=== PATIENT | female | born 1965 | race Caucasian/White ===

== ENCOUNTER 2017-02-03 14:43 | Emergency (ER) | payer OTHER ==
--- NOTE | 2017-02-03 14:48 | UC ---
Syncope/New Syncope HPI - HPI Summary HPI Summary: 51 YEAR OLD FEMALE HAS A SYNCOPAL EPISODE YESTERDAY SO I WILL SEND HER TO THE ER. - History Of Current Complaint Stated Complaint: PASSED OUT Time Seen by Provider: 02/03/17 14:48 Hx Obtained From: Patient Onset/Duration: Sudden Onset Activity At Onset: At Rest Timing: Seconds Context: Witnessed Associated Head Trauma: No - Allergies/Home Medications Allergies/Adverse Reactions: Allergies Allergy/AdvReac Type Severity Reaction Status Date / Time No Known Allergies Allergy Verified 01/17/15 11:17 Home Medications: Home Medications Aripiprazole 1 tab PO DAILY 02/03/17 [History Confirmed 02/03/17] Gabapentin CAP(*) [Neurontin 300 CAP(*)] 1 cap PO TID 02/03/17 [History Confirmed 02/03/17] Losartan Potassium 1 tab PO DAILY 02/03/17 [History Confirmed 02/03/17] traMADol TAB* [Ultram*] 1 tab PO Q6HR PRN 02/03/17 [History Confirmed 02/03/17] PMH/Surg Hx/FS Hx/Imm Hx Previously Healthy: Yes - Surgical History Surgical History: Yes Surgery Procedure, Year, and Place: Lap-band 2003. 2 C-sections. Gastric Sleeve 11/03/2011. hysterectomy - Social History Alcohol Use: Daily Alcohol Amount: 3-4 beers daily Substance Use Type: Marijuana, Prescribed Smoking Status (MU): Current Every Day Smoker Type: eCigarettes - Immunization History Most Recent Tetanus Shot: not sure of date Review of Systems Constitutional: Negative Skin: Negative Eyes: Negative ENT: Negative Respiratory: Negative Cardiovascular: Negative Gastrointestinal: Negative Genitourinary: Negative Motor: Negative Neurovascular: Negative Musculoskeletal: Negative Neurological: Headache, Weakness Psychological: Negative All Other Systems Reviewed And Are Negative: Yes Physical Exam Triage Information Reviewed: Yes Eye Exam: Normal ENT Exam: Normal Dental Exam: Normal Neck exam: Normal Neck: Positive: 1 Respiratory Exam: Normal Cardiovascular Exam: Normal Abdominal Exam: Normal Musculoskeletal Exam: Normal Neurological Exam: Normal Psychological Exam: Normal Skin Exam: Normal Syncope Course/Dx - Differential Dx/Diagnosis Provider Diagnoses: SYNCOPAL EPISODE Discharge - Discharge Plan Condition: Stable Disposition: HOME Patient Education Materials: Syncope (ED) Referrals: Nathaniel Thornton MD [Primary Care Provider] - Additional Instructions: PLEASE GO TO ER TO RULE OUT STROKE.
[2017-02-03 15:04] VITALS: BP 145/94
== END 2017-02-03 15:18 | disposition home or self-care (01) ==
LOC: UCEAST 14:43
DX: R55 Syncope and collapse (principal); R07.89 Other chest pain; Z98.84 Bariatric surgery status; F12.90 Cannabis use, unspecified, uncomplicated; F17.210 Nicotine dependence, cigarettes, uncomplicated
CPT/HCPCS: 93005; 99211; G0463

== ENCOUNTER 2017-02-03 15:38 | Emergency (ER) | payer OTHER ==
[2017-02-03] MEDS ORDERED: NS 0.9% 1000 ML* 2,000 ML IV ONE (16:38)
--- NOTE | 2017-02-03 17:11 | RAD ---
INDICATION: Syncope, congestive heart failure. COMPARISON: Comparison is made with a prior study from November 06, 2011. TECHNIQUE: Dual-energy PA and lateral views of the chest were obtained. FINDINGS: The heart is within normal limits in size. Mediastinal and hilar contours appear within normal limits. The lungs are clear. No pleural effusion is present. IMPRESSION: NO EVIDENCE FOR ACTIVE CARDIOPULMONARY DISEASE.
--- NOTE | 2017-02-03 17:18 | RAD ---
INDICATION: Syncope, head injury. COMPARISON: There are no prior studies available for comparison. TECHNIQUE: Contiguous axial sections of the brain were obtained from the skull base to the vertex without contrast. FINDINGS: The ventricles, cisterns and sulci are within normal limits. No significant focal abnormality or mass effect is seen. There is no evidence for hemorrhage. Incidental note is made of peripheral coarse dural calcifications adjacent to the frontal lobes. No significant focal osseous abnormality is seen. The visualized portion of the paranasal sinuses and mastoid air cells appear clear. IMPRESSION: NO EVIDENCE FOR ACUTE INTRACRANIAL ABNORMALITY.
[2017-02-03 17:56] LABS: Hematocrit 46 % (35-47); Hemoglobin 15.8 g/dl (12.0-16.0); Mean Corpuscular HGB Conc 34 g/dl (31-36); Mean Corpuscular Hemoglobin 33 pg (27-31); Mean Corpuscular Volume 95 fL (80-97); Mean Platelet Volume 8 um3 (7.4-10.4); Red Blood Count 4.84 10^6/ul (4.0-5.4); Red Cell Distribution Width 13 % (10.5-15); White Blood Count 5.7 10^3/ul (3.5-10.8)
[2017-02-03 18:10] LABS: Albumin 3.7 g/dL (3.2-5.2); BUN/Creatinine Ratio 11.4 (8-20); Calcium 9.2 mg/dL (8.6-10.3); EGFR African American 97.9 (>60); EGFR Non-African American 76.1 (>60); Globulin 3.2 g/dL (2-4); Magnesium 1.9 mg/dL (1.9-2.7); Potassium 3.3 mmol/L (3.5-5.0); Total Bilirubin 0.9 mg/dL (0.2-1.0); Total Protein 6.9 g/dL (6.4-8.9)
[2017-02-03 18:33] VITALS: BP 131/77
[2017-02-03 18:41] LABS: TSH (Thyroid Stimulating Horm) 2.85 mcIU/mL (0.34-5.60)
--- NOTE | 2017-02-03 19:40 | ED ---
Aristeo Chery SooYoung, scribed for Reynaldo Rodriguez MD on 02/03/17 at 1629 . Syncope/Near Syncope - HPI Summary HPI Summary: A 51 y/o F referred by JOSHUAE presents to ED after syncopal episode onset last night. Pt states she stood up from her chair, and her vision got blurry. Next thing, her was standing above her. She had fallen onto the hearth, a vacuum, the fireplace in the living room. Associated sx: mild ecchymosis, mild diffuse WEIR, mild SOB at times. Denies: head trauma, neck pain, slurred speech, palpitations, fever, chills, rhinorrhea, cough, LE edema or pain, incontinence, urinary symptoms. PMHx: fibromyalgia, HTN. Neg DM, SD, CVA. PCP is Dr. Thornton. Former smoker, vapes. Daily ETOH. No prev episodes of syncope. - History Of Current Complaint Chief Complaint: EDSyncope Time Seen by Provider: 02/03/17 16:17 Hx Obtained From: Patient, Family/Compound Specialist Onset/Duration: Sudden Onset, Resolved Timing: Frequency Of Episodes - 1x Context: Loss Of Consciousness Activity At Onset: At Rest Associated Head Trauma: No Alleviating Factor(s): Spontaneous Resolution Associated Signs And Symptoms: Headache - mild, Shortness Of Breath - mild, Other - pos: mild ecchymosis - Allergies/Home Medications Allergies/Adverse Reactions: Allergies Allergy/AdvReac Type Severity Reaction Status Date / Time No Known Allergies Allergy Verified 02/03/17 15:57 PMH/Surg Hx/FS Hx/Imm Hx Previously Healthy: No Endocrine/Hematology History: Denies: Hx Diabetes, Hx Thyroid Disease Cardiovascular History: Reports: Hx Hypertension Respiratory History: Reports: Hx Sleep Apnea Denies: Hx Asthma, Hx Chronic Obstructive Pulmonary Disease (COPD) GI History: Denies: Hx Ulcer Psychiatric History: Reports: Hx Anxiety - Cancer History Hx Chemotherapy: No Hx Radiation Therapy: No - Surgical History Surgery Procedure, Year, and Place: Lap-band 2004. 2 C-sections. Gastric Sleeve 11/03/2011. hysterectomy. excisional biopsy right breast-negative Infectious Disease History: Reports: Hx Shingles Denies: Hx Clostridium Difficile, Hx Hepatitis, Hx Human Immunodeficiency Virus (HIV), Hx of Known/Suspected MRSA, Hx Tuberculosis, Hx Known/Suspected VRE , Hx Known/Suspected VRSA, History Other Infectious Disease, Traveled Outside the [place] in Last 30 Days - Family History Known Family History: Positive: Cardiac Disease - both parents, grandparents - Social History Occupation: Employed Part-time Lives: With Family Alcohol Use: Daily Alcohol Amount: 3-4 beers daily Hx Substance Use: Yes Substance Use Type: Reports: Marijuana, Prescribed Hx Tobacco Use: Yes Smoking Status (MU): Heavy Every Day Tobacco Smoker Type: eCigarettes Review of Systems Negative: Fever, Chills Negative: Nasal Discharge Negative: Palpitations Positive: Shortness Of Breath - mild. Negative: Cough Negative: dysuria, frequency, hematuria, incontinence, urgency Positive: Other - neg: head trauma, neg neck pain. Negative: Edema Positive: Bruising Positive: Headache - mild diffuse, Syncope. Negative: Slurred Speech All Other Systems Reviewed And Are Negative: Yes Physical Exam - Summary Physical Exam Summary: The patient is well-nourished in no acute distress and in no acute pain. The skin is warm and dry and skin color reflects adequate perfusion. HEENT: The head is normocephalic and atraumatic. The pupils are equal and reactive. The conjunctivae are clear and without drainage. No benoit or racoon signs. No facial droop. Nares are patent and without drainage. Mouth reveals moist mucous membranes and the throat is without erythema and exudate. The external ears are intact. The ear canals are patent and without drainage. The tympanic membranes are intact. No hemotympanum. Neck is supple with full range of motion and non-tender. There are no carotid bruits. There is no neck vein distension. Respiratory: Chest is non-tender. Lungs are clear to auscultation and breath sounds are symmetrical and equal. Cardiovascular: Hear is regular rate and rhythm. There is no murmur or rub auscultated. There is no peripheral edema and pulses are symmetrical and equal. Abdomen: The abdomen is soft, obese and non-tender. No CVA tenderness. There are normal bowel sounds heard in all four quadrants and there is no organomegaly palpated. Musculoskeletal: There is no back pain noted. Extremities are non-tender with full range of motion. There is good capillary refill. There is no peripheral edema or calf tenderness elicited. Neurological: Patient is alert and oriented to person, place and time. The patient has symmetrical motor strength in all four extremities. Cranial nerves II-XII are intact. Deep tendon reflexes are symmetrical and equal in all four extremities. No pronator drift. Finger to nose is intact. No drift in leg. Heel to veloz is intact. Psychiatric: The patient has an appropriate affect and does not exhibit any anxiety or depression. Triage Information Reviewed: Yes Vital Signs On Initial Exam: Initial Vitals Temp Pulse Resp BP Pulse Ox 97.4 F 54 16 137/88 96 02/03/17 15:48 02/03/17 15:48 02/03/17 15:48 02/03/17 15:48 02/03/17 15:48 Vital Signs Reviewed: Yes Diagnostics - Vital Signs Vital Signs Temp Pulse Resp BP Pulse Ox 02/03/17 15:48 97.4 F 54 16 137/88 96 - Laboratory Lab Results: Lab Results 02/03/17 02/03/17 02/03/17 Range/Units 17:40 17:40 17:40 WBC 5.7 (3.5-10.8) 10^3/ul RBC 4.84 (4.0-5.4) 10^6/ul Hgb 15.8 (12.0-16.0) g/dl Hct 46 (35-47) % MCV 95 (80-97) fL MCH 33 H (27-31) pg MCHC 34 (31-36) g/dl RDW 13 (10.5-15) % Plt Count 158 (150-450) 10^3/ul MPV 8 (7.4-10.4) um3 Neut % (Auto) 52.4 (38-83) % Lymph % (Auto) 36.6 (25-47) % Lea % (Auto) 6.6 (1-9) % Eos % (Auto) 1.4 (0-6) % Baso % (Auto) 3.0 H (0-2) % Absolute Neuts (auto) 3.0 (1.5-7.7) 10^3/ul Absolute Lymphs (auto) 2.1 (1.0-4.8) 10^3/ul Absolute Monos (auto) 0.4 (0-0.8) 10^3/ul Absolute Eos (auto) 0.1 (0-0.6) 10^3/ul Absolute Basos (auto) 0.2 (0-0.2) 10^3/ul Absolute Nucleated RBC 0.01 10^3/ul Nucleated RBC % 0.2 Sodium 135 (133-145) mmol/L Potassium 3.3 L (3.5-5.0) mmol/L Chloride 99 L (101-111) mmol/L Carbon Dioxide 30 (22-32) mmol/L Anion Gap 6 (2-11) mmol/L BUN 9 (6-24) mg/dL Creatinine 0.79 (0.51-0.95) mg/dL Est GFR ( Amer) 97.9 (>60) Est GFR (Non-Af Amer) 76.1 (>60) BUN/Creatinine Ratio 11.4 (8-20) Glucose 98 (70-100) mg/dL Lactic Acid 1.0 (0.5-2.0) mmol/L Calcium 9.2 (8.6-10.3) mg/dL Magnesium 1.9 (1.9-2.7) mg/dL Total Bilirubin 0.90 (0.2-1.0) mg/dL AST 44 H (13-39) U/L ALT 57 H (7-52) U/L Alkaline Phosphatase 78 (34-104) U/L Troponin I 0.00 (<0.04) ng/mL B-Natriuretic Peptide ( - 100) pg/mL Total Protein 6.9 (6.4-8.9) g/dL Albumin 3.7 (3.2-5.2) g/dL Globulin 3.2 (2-4) g/dL Albumin/Globulin Ratio 1.2 (1-3) TSH 2.85 (0.34-5.60) mcIU/mL 02/03/17 Range/Units 17:40 WBC (3.5-10.8) 10^3/ul RBC (4.0-5.4) 10^6/ul Hgb (12.0-16.0) g/dl Hct (35-47) % MCV (80-97) fL MCH (27-31) pg MCHC (31-36) g/dl RDW (10.5-15) % Plt Count (150-450) 10^3/ul MPV (7.4-10.4) um3 Neut % (Auto) (38-83) % Lymph % (Auto) (25-47) % Lea % (Auto) (1-9) % Eos % (Auto) (0-6) % Baso % (Auto) (0-2) % Absolute Neuts (auto) (1.5-7.7) 10^3/ul Absolute Lymphs (auto) (1.0-4.8) 10^3/ul Absolute Monos (auto) (0-0.8) 10^3/ul Absolute Eos (auto) (0-0.6) 10^3/ul Absolute Basos (auto) (0-0.2) 10^3/ul Absolute Nucleated RBC 10^3/ul Nucleated RBC % Sodium (133-145) mmol/L Potassium (3.5-5.0) mmol/L Chloride (101-111) mmol/L Carbon Dioxide (22-32) mmol/L Anion Gap (2-11) mmol/L BUN (6-24) mg/dL Creatinine (0.51-0.95) mg/dL Est GFR ( Amer) (>60) Est GFR (Non-Af Amer) (>60) BUN/Creatinine Ratio (8-20) Glucose (70-100) mg/dL Lactic Acid (0.5-2.0) mmol/L Calcium (8.6-10.3) mg/dL Magnesium (1.9-2.7) mg/dL Total Bilirubin (0.2-1.0) mg/dL AST (13-39) U/L ALT (7-52) U/L Alkaline Phosphatase (34-104) U/L Troponin I (<0.04) ng/mL B-Natriuretic Peptide 182 H ( - 100) pg/mL Total Protein (6.4-8.9) g/dL Albumin (3.2-5.2) g/dL Globulin (2-4) g/dL Albumin/Globulin Ratio (1-3) TSH (0.34-5.60) mcIU/mL Result Diagrams: 02/03/17 17:40 02/03/17 17:40 Lab Statement: Any lab studies that have been ordered have been reviewed, and results considered in the medical decision making process. - Radiology CXR Xray Interpretation: No Acute Changes - IMPRESSION: No evidence for active cardiopulmonary dz. Radiology Interpretation Completed By: Radiologist - CT BRAIN CT CT Interpretation: No Acute Changes - IMPRESSION: no evidence for acute intracranial pathology. CT Interpretation Completed By: Radiologist - EKG 1605 Cardiac Rate: Bradycardia - 55bpm EKG Rhythm: Sinus Bradycardia EKG Interpretation: nml axis Re-Evaluation - Re-Evaluation 1 Re-Evaluation Time: 18:26 Change: Unchanged Comment: Discussing results with pt. Pt voiced understanding. Course/Dx Course Of Treatment: Pt is a 51 y/o F referred by E presenting after syncopal episode onset last night. Pt states she stood up from her chair, and her vision got blurry. Next thing, her was standing above her. She had fallen onto the hearth, a vacuum, the fireplace in the living room. Associated sx: mild ecchymosis, mild diffuse WEIR, mild SOB at times. Denies: head trauma, neck pain, palpitations, fever, chills, rhinorrhea, cough, LE edema or pain, incontinence, urinary symptoms. PMHx: fibromyalgia, HTN. Neg DM, SD, CVA. PCP is Dr. Thornton. Former smoker, vapes. Daily ETOH. No prev episodes of syncope. Pt given fluids in ED. Blood work and lab results are without significant abnormality. EKG shows sinus regla. CXR is negative. Brain CT is nml. Will D/C home to f/u with Dr. Thornton with possible cardiac outpatient workup. - Diagnoses Differential Diagnosis/HQI/PQRI: Positive: Coronary Artery Disease, Dysrhythmia , GI Bleed, Hypovolemia, Metabolic Reaction, Myocardial Infarction, Vasovagal Episode, Other - cva, tia Provider Diagnoses: Syncope Discharge - Discharge Plan Condition: Stable Disposition: HOME Patient Education Materials: Syncope (ED) Referrals: Nathaniel Thornton MD [Primary Care Provider] - 2 Days (Follow up with Dr. Thornton in 2 days for possible cardiac outpatient workup.) Additional Instructions: Follow up with Dr. Thornton in 2 days for possible cardiac outpatient workup. Please return to the ED if you experience new or worsening symptoms. The documentation as recorded by the Aristeo moreno SooYoung accurately reflects the service I personally performed and the decisions made by me, Reynaldo Rodriguez MD.
== END 2017-02-03 18:54 | disposition home or self-care (01) ==
LOC: ED 15:38
DX: R55 Syncope and collapse (principal); R51 Headache; R06.02 Shortness of breath; F17.210 Nicotine dependence, cigarettes, uncomplicated
CPT/HCPCS: 36415; 70450; 71020; 80053; 83605; 83735; 83880; 84443; 84484; 85025; 99283

== ENCOUNTER → 2019-02-27 | Day surgery (SDC) | payer OTHER ==
[~2019-02-27] MED LIST: Diazepam TAB(*) 5 MG ONE; Heparin 2 UNITS/ML IVPREMIX* 2,000 ML IV ONE; Heparin(*) 1000 UNIT/ML 10 ML VIAL CATH LAB IV ONE; Iohexol 350 (CONTRAST) 200 ML MDV IV ONE; Lidocaine 1% INJ* 10 MG/ML 30 ML SDV ONE; Midazolam* 1 MG/ML 5 ML VIAL (5 MG) ONE; VERAPAMIL 2.5 MG/ML 2 ML VIAL ** 5 mg/2 ml ONE; diPHENhydraMINE PO* 25 MG ONE; fentaNYL* 50 MCG/ML 2 ML VIAL (100 MCG VIAL) ONE; nitroGLYCERIN DRIP* 25,000 MCG/250 ML BTL ONE
[2019-02-27 13:01] VITALS: BP 123/83
--- NOTE | 2019-02-28 16:24 | CATH ---
"*[facility]* [place] [address] Main: [phone] [email or web address] Cardiac Catheterization Patient: Yessy Monson : 1965 Study Date: 02/27/2019 Age: 53 Gender: F HR: Height: 70 in /177.8 cm BSA: 2.84 m^2 Weight: 339.9 lb /154.5 kg BMI: 48.9 kg/m^2 Telecommunication Equipment Repairer: Jose Cruz Fan MD Ordering Physician: Jose Cruz Fan MD Referring Physician: Jose Cruz Fan MD, Meng Meyer, --- - Left coronary angiography. - Right coronary angiography. - Left heart catheterization with angiography. Summary: Normal Coronary Arteries History: Risk factors: Hypertension. Family history is significant for coronary artery disease. Medications: The patient received no antianginal therapy in the last two weeks. Labs, prior tests, procedures, and surgery: Blood tests: International normalized ratio (INR) of 1.07. Partial thromboplastin time (PTT) of 30.4 sec. Serum potassium (K) of 3.7 mEq/l. Serum sodium (Na) of 138 mEq/l. Serum creatinine (current admission) of 0.85 mg/dl. Blood urea nitrogen of 9 mg/dl. Glucose of 102 mg/dl. Platelet count of 170 th/ul. White blood cell count (WBC) of 0.01 th/ul. Red blood cell count (RBC) of 4450 th/ul. Hematocrit of 44 %. Hemoglobin (pre-procedure) of 14.9 g/dl. Study data: Study status: Cardiac cath: elective. Location: Catheterization laboratory. Consent: The risks, benefits, and alternatives to the procedure were explained to the patient and/or their healthcare parts representative and written informed consent was obtained. All available pre-procedure labs were reviewed. Height: 177.8 cm. 70 in. Weight: 154.5 kg. 339.9 lb. Body surface area: 2.84 m^2. Body mass index: 48.9 kg/m^2. Procedure: 1. Initial setup. The patient was brought to the laboratory. Surface ECG leads, blood pressure measurements, and pulse oximetric signals were monitored. A baseline seven lead ECG was recorded. A time out was observed per protocol. 2. Skin preparation. The planned puncture sites were prepped and draped in the usual sterile manner. 3. Local anesthesia. 1% lidocaine was administered. 4. Sedation. Moderate sedation was administered. 5. Supplemental oxygen. Oxygen, 2 L/min was administered throughout the procedure. 6. Local anesthesia. 1% lidocaine (2 ml) was administered. 7. Right radial artery access. A 6F Glidesheath Slender sheath was advanced into the vessel. 8. Supplemental oxygen. Oxygen, 4 L/min was administered throughout the procedure. 9. Selective left coronary angiography. A 5F TIG 4.0 catheter was advanced into the left coronary vessel ostium under fluoroscopic guidance. Contrast was injected. Images were obtained in multiple projections. 10. Selective right coronary angiography. A 5F AR 1 Impulse catheter was advanced into the right coronary vessel ostium under fluoroscopic guidance. Contrast was injected. Images were obtained in multiple projections. 11. Left heart catheterization with angiography. A 5F PIG Short Radial catheter was advanced across the aortic valve to the left ventricle under fluoroscopic guidance. 30 ml of contrast was injected at 10 ml/s. 12. Right radial artery hemostasis. Vessel closure was achieved with a Long Vasc Band device. Study completion: Minimal estimated blood loss. All catheters inserted during the procedure were removed. There were no apparent complications. Administered medications: Aspirin, 81mg, PO. VALIUM (Diazepam), 5mg, PO. BENADRYL (Diphenhydramine), 25mg, PO. (Radial) Nitroglycerin, 300mcg, intra-arterially. (Radial) Verapamil, 3mg, intra-arterially. (Radial) Heparin, 3,000units, intra-arterially. VERSED (Midazolam), for a total dose of 3mg, IV. Fentanyl, for a total dose of 50mcg, IV. NaCl 0.9% , infusion , at a rate of 100 ml/hr. Contrast: Omnipaque 350 80 ml (total dose). Omnipaque 350 320 ml (wasted). Radiation: Fluoroscopy dose: 114.3 cGy. Discharge: The patient tolerated the procedure well and was discharged from the lab in stable condition. Findings Coronary arteries: The coronary circulation is right dominant. Left main: Normal, 0% stenosis. LAD: Normal, 0% stenosis. Left circumflex: Normal, 0% stenosis. Right coronary: Normal, 0% stenosis. Hemodynamics: + + + |Stage description |Condition 1 - | + + + |LV pressure s/d, ed |117/14, 34, dP/ua=7535 mm Hg/s| + + + |Arterial pressure s/d (m)|128/75 (100) | + + + Prepared and electronically signed by Jose Cruz Fan MD 02/28/2019 16:23"
== END | disposition home or self-care (01) ==
LOC: CHICATH 08:12
PROVIDERS: ATTEND Specialist
DX: R07.9 Chest pain, unspecified (principal); R06.02 Shortness of breath; R94.31 Abnormal electrocardiogram [ECG] [EKG]; I10 Essential (primary) hypertension; Z82.49 Family history of ischemic heart disease and other diseases of the circulatory system; E66.01 Morbid (severe) obesity due to excess calories; M19.90 Unspecified osteoarthritis, unspecified site; J45.909 Unspecified asthma, uncomplicated; F41.8 Other specified anxiety disorders; M79.7 Fibromyalgia; E78.5 Hyperlipidemia, unspecified; Z98.84 Bariatric surgery status
CPT/HCPCS: 93458; 99156; 99157; A9270-GY; J1644; J2250; J3010

== ENCOUNTER 2019-08-07 14:48 | Emergency (ER) | payer OTHER ==
--- OUTSIDE RECORDS SUMMARY | 2019-08-07 15:00 | XMS REPORT | Continuity of Care Document ---
:1965 External Reference #:[id number] Author Name Liyah Baca M.D. (transmitted by agent of provider Calli Cornell) Address [address] [place] [address] Care Team Providers Name Role Phone Nathaniel Thornton MD - Internal Care Team Information Sealant [employer]er Medicine Problems Active Problems Provider Date Localized, primary osteoarthritis Liyah Baca M.D. Onset: 02/02/2018 Morbid obesity Liyah Baca M.D. Onset: 02/02/2018 Social History Type Date Description Comments Sex Unknown Tobacco Use Start: Unknown Former Cigarette on and off starting End: Unknown Smoker age 11 1/2-1 pack Tobacco Use Start: Unknown Vape for 2 years Smoking Status Reviewed: 07/03/19 Vape for 2 years ETOH Use Denies alcohol use Pt quit drinking 2018 Tobacco Use Start: Unknown Patient has never smoked Recreational Drug Use Regularly uses used with air Marijuana vaporizer Exercise Type/Frequency Exercises rarely fibromyalgia Allergies, Adverse Reactions, Alerts Description No Known Drug Allergies Medications Active Medications SIG Qnty Indications Ordering Provider Date Doxazosin Mesylate 1 by mouth every Unknown 8mg day Tablets Abilify one by mouth Unknown 2mg Tablets daily for Mood Potassium Chloride 1 by mouth every Unknown Amelia ER day 20Meq Tablets ER Gabapentin take one capsule Unknown 400mg Capsules by mouth 3 times day Losartan Potassium 1 by mouth every Unknown 100mg day Tablets Proair HFA 2 puffs by mouth Unknown 108(90Base) every 4 hours as mcg/Act Aerosol needed Drisdol 1 cap po once a Unknown 22128Hsdo week Capsules Atenolol-Chlorthalidon take 1 tablet by Unknown e mouth every 50-25mg Tablets morning Escitalopram Oxalate 1 by mouth every Unknown 20mg day Tablets Alprazolam take up to 2 Unknown 0.5mg Tablets pills up to every 6 hours as needed for anxiety Multivitamin Women 1 by mouth every Unknown day Tablets Mirtazapine 1 tablet po at Unknown 30mg Tablets bedtime Nystatin apply twice daily Unknown [id number] until rash clears Powder Oxycodone-Acetaminophe Take 1/2 To 1 Unknown n Tablet By Mouth 5-325mg Tablets Up To Four Times A Day as Needed For Severe Knee Pain Flares Maximum Daily Dose 4 History Medications Aspirin take one by 30units R07.9 Michele Inman, 02/23/2019 - 81mg mouth daily DO [facility] 07/02/2019 Chewtabs Medications Administered in Office Medication SIG Qnty Indications Ordering Provider Date Depildarol 40MG Liyah Baca M.D. 03/31/2019 Injection Depomedrol 40MG Liyah Baca M.D. 03/31/2019 Injection Depomedrol 40MG Liyah Baca M.D. 11/21/2018 Injection Depomedrol 40MG Liyah Baca M.D. 11/21/2018 Injection Depomedrol 40MG Liyah Baca M.D. 08/22/2018 Injection Depomedrol 40MG Liyah Baca M.D. 08/22/2018 Injection Depomedrol 40MG Liyah Baca M.D. 05/23/2018 Injection Depomedrol 40MG Liyah Baca M.D. 05/23/2018 Injection Hyaluron Or Liyah Baca M.D. 04/06/2018 Sarmad,Orthovisc,For Intra-Articular Inj Per Dose Injection Hyaluron Or Liyah Baca M.D. 04/06/2018 SarmadOrthovisc,For Intra-Articular Inj Per Dose Injection Hyaluron Or Liyah Baca M.D. 03/28/2018 Derivative,Orthovisc,For Intra-Articular Inj Per Dose Injection Hyaluron Or Liyah Baca M.D. 03/21/2018 Sarmad,Orthovisdillan,For Intra-Articular Inj Per Dose Injection Hyaluron Or Liyah Baca M.D. 03/21/2018 Sarmad,Orthovisc,For Intra-Articular Inj Per Dose Injection Immunizations Description No Information Available Vital Signs Date Vital Result Comment 07/03/2019 1:02pm Height 70 inches 5'10" Weight 336.00 lb Heart Rate 68 /min BP Systolic 132 mmHg BP Diastolic 82 mmHg Respiratory Rate 18 /min Pain Level 8 BMI (Body Mass Index) 48.2 kg/m2 03/31/2019 1:55pm Height 70 inches 5'10" Weight 337.50 lb Heart Rate 68 /min BP Systolic 130 mmHg BP Diastolic 82 mmHg Respiratory Rate 18 /min Body Temperature 98.0 F Pain Level 6 BMI (Body Mass Index) 48.4 kg/m2 Results Test Acquired Date Facility Test Result H/L Range Note Cath Panel 02/24/2019 [facility] Partial 30.4 seconds Normal 26.0-38.[address] [place] [address] PTT [phone] CBC Auto 02/24/2019 [facility] White Blood 5.5 10^3/uL Normal 3.5-10.[address] [place] [address] [phone] Red Blood Count 4.45 10^6/uL Normal 3.70-4.87 Hemoglobin 14.9 g/dL Normal 12.0-16.0 Hematocrit 44 % Normal 35-47 Mean Corpuscular Volume 98 fL High 80-97 Mean Corpuscular Hemoglobin 33 pg High 27-31 Mean Corpuscular HGB Conc 34 g/dL Normal 31-36 Red Cell Distribution Width 13 % Normal 10-15 Platelet Count 170 10^3/uL Normal 150-450 Mean Platelet Volume 7.5 fL Normal 7.4-10.4 Abs Neutrophils 3.3 10^3/uL Normal 1.5-7.7 Abs Lymphocytes 1.7 10^3/uL Normal 1.0-4.8 Abs Monocytes 0.4 10^3/uL Normal 0-0.8 Abs Eosinophils 0.1 10^3/uL Normal 0-0.6 Abs Basophils 0.1 10^3/uL Normal 0-0.2 Abs Nucleated RBC 0.0 10^3/uL Granulocyte % 59.1 % Lymphocyte % 31.5 % Monocyte % 6.6 % Eosinophil % 1.9 % Basophil % 0.9 % Nucleated Red Blood Cells % 0.1 Inr/Protime 02/24/2019 [facility] Inr 1.07 Normal 0.82-1.09 1 [address] [place] [address] [phone] Basic Metabolic 02/24/2019 [facility] Sodium 138 mmol/L Normal 135-145 Panel [address] [place] [address] [phone] Potassium 3.7 mmol/L Normal 3.5-5.0 Chloride 98 mmol/L Low 101-111 Co2 Carbon Dioxide 32 mmol/L Normal 22-32 Anion Gap 8 mmol/L Normal 2-11 Glucose 102 mg/dL High 70-100 Blood Urea Nitrogen 9 mg/dL Normal 6-24 Creatinine 0.85 mg/dL Normal 0.51-0.95 BUN/Creatinine Ratio 10.6 Normal 8-20 Calcium 9.6 mg/dL Normal 8.6-10.3 Egfr Non- 69.4 >60 Egfr 84.0 >60 2 Laboratory test 02/24/2019 [facility] B-Type 134 pg/mL High <= 100 finding [address] [facility] [place] [address] Peptide BNP [phone] TSH (Thyroid Stim Horm) 3.21 mcIU/mL Normal 0.34-5.60 Liver Function 02/24/2019 [facility] Total Protein 7.2 g/dL Normal 6.4-8.9 Panel [address] [place] [address] [phone] Albumin 4.0 g/dL Normal 3.2-5.2 Globulin 3.2 g/dL Normal 2-4 Albumin/Globulin Ratio 1.3 Normal 1-3 Total Bilirubin 0.70 mg/dL Normal 0.2-1.0 Direct Bilirubin 0.10 mg/dL Normal 0.03-0.18 Indirect Bilirubin 0.6 mg/dL Normal 0.3-1.0 Alkaline Phosphatase 83 U/L Normal 34-104 Alt 44 U/L Normal 7-52 Ast 41 U/L High 13-39 1 Standard intensity warfarin therapeutic range: 2.0-3.0 High intensity warfarin therapeutic range: 2.5-3.5 2 Because ethnic data is not always readily available, this report includes an eGFR for both -Americans and non- Americans. The National Kidney Disease Education Program (NKDEP) does not endorse the use of the MDRD equation for patients that are not between the ages of 18 and 70, are , have extremes of body size, muscle mass, or nutritional status, or are non- or non-. According to the National Kidney Foundation, irrespective of diagnosis, the stage of the disease is based on the level of kidney function: Stage Description GFR(mL/min/1.73 m(2)) 1 Kidney damage with normal or decreased GFR 90 2 Kidney damage with mild decrease in GFR 60-89 3 Moderate decrease in GFR 30-59 4 Severe decrease in GFR 15-29 5 Kidney failure <15 (or dialysis) Procedures Date Code Description Status 07/03/2019 Inject/Drain Joint/Bursa Major W/O US Completed 07/03/2019 Inject/Drain Joint/Bursa Major W/O US Completed 03/31/201946832 Inject/Drain Joint/Bursa Major W/O US Completed 02/27/2019 45454 Left Heart Cath. Incl S/I Coronaries, Angio S/I V Gram If Completed Done 02/23/2019 98913 EKG Tracing & Interpretation Completed Medical Devices Description No Information Available Encounters Type Date Location Provider Dx Diagnosis Office Visit 07/03/2019 [facility] Liyah Baca, M25.562 Pain in left knee 1:00p at [facility] M25.561 Pain in right knee M25.462 Effusion, left knee M25.461 Effusion, right knee M17.0 Bilateral primary osteoarthritis of knee Office Visit 03/07/2019 2:00p [facility] Jose Cruz Logan R06.02 Shortness of Of Pneumatic Systems Operator [place] [facility] [place] Fan breath R07.9 Chest pain, unspecified Office Visit 02/23/2019 4:00p [facility] Michele Skelton R06.02 Shortness of Of Pneumatic Systems Operator [place], DO breath FACC R07.9 Chest pain, unspecified Z72.0 Tobacco use R94.31 Abnormal electrocardiogram [ECG] [EKG] I10 Essential (primary) hypertension E78.5 Hyperlipidemia, unspecified Z68.42 Body mass index (BMI) 45.0-49.9, adult E66.8 Other obesity Z98.84 Bariatric surgery status Assessments Date Code Description Provider 07/03/2019 M25.562 Pain in left knee Liyah Keven, M.D. 07/03/2019 M25.561 Pain in right knee Liyah Keven, M.D. 07/03/2019 M25.462 Effusion, left knee Liyah Keven, M.D. 07/03/2019 M25.461 Effusion, right knee Liyah Keven, M.D. 07/03/2019 M17.0 Bilateral primary osteoarthritis of knee Liyah Keven, M.D. 03/31/2019 M25.562 Pain in left knee Liyah Keven, M.D. 03/31/2019 M25.561 Pain in right knee Liyah Keven, M.D. 03/31/2019 M25.462 Effusion, left knee Liyah Keven, M.D. 03/31/2019 M25.461 Effusion, right knee Liyah Keven, M.D. 03/31/2019 M17.0 Bilateral primary osteoarthritis of knee Liyah Keven, M.DJennifer 03/07/2019 R06.02 Shortness of breath Jose Cruz Fan M.D. 03/07/2019 R07.9 Chest pain, unspecified Jose Cruz Fan M.D. 02/27/2019 R07.9 Chest pain, unspecified Jose Cruz Fan M.D. 02/23/2019 R06.02 Shortness of breath Michele Inman DO [facility] 02/23/2019 R07.9 Chest pain, unspecified Michele Inman, DO [facility] 02/23/2019 Z72.0 Tobacco use Michele Inman, DO [facility] 02/23/2019 R94.31 Abnormal electrocardiogram [ECG] [EKG] Michele Inman DO [facility] 02/23/2019 I10 Essential (primary) hypertension Michele Inman DO [facility] 02/23/2019 E78.5 Hyperlipidemia, unspecified Michele Inman, DO [facility] 02/23/2019 Z68.42 Body mass index (BMI) 45.0-49.9, adult Michele Inman, DO [facility] 02/23/2019 E66.8 Other obesity Michele Inman, DO [facility] 02/23/2019 Z98.84 Bariatric surgery status Michele Inman, DO [facility] Plan of Treatment Future Appointment(s):09/25/2019 1:15 pm - Liyah Baca M.D. at [facility] at [place]7/03/2019 - Liyah Baca M.D.M25.562 Pain in left kneeNew Xrays:Knee 3 Views Bilateral, Ordered: 07/03/19Follow up:Follow up: 3 cccaioR94.561 Pain in right kneeNew Xrays:Knee 3 Views Bilateral, Ordered: 07/03M25.462 Effusion, left kneeM25.461 Effusion, right kneeM17.0 Bilateral primary osteoarthritis of knee Functional Status Description No Information Available Mental Status Description No Information Available Referrals Description No Information Available
[2019-08-07 15:36] LABS: ABS Basophils 0.1 10^3/ul (0-0.2); ABS Eosinophils 0.1 10^3/ul (0-0.6); ABS Monocytes 0.5 10^3/ul (0-0.8); ABS Neutrophils 5.5 10^3/ul (1.5-7.7); Eosinophil % 1.8 %; Hematocrit 43 % (35-47); Hemoglobin 14.6 g/dL (12.0-16.0); Lymphocyte % 24.8 %; Mean Corpuscular HGB Conc 34 g/dL (31-36); Mean Corpuscular Hemoglobin 30 pg (27-31); Mean Corpuscular Volume 90 fL (80-97); Nucleated Red Blood Cells % 0.2; Platelet Count 208 10^3/uL (150-450); Red Blood Count 4.81 10^6 /uL (3.70-4.87); Red Cell Distribution Width 14 % (10-15); White Blood Count 8.3 10^3/uL (3.5-10.8)
[2019-08-07 15:49] LABS: Calcium 9.6 mg/dL (8.6-10.3); Potassium 3.4 mmol/L (3.5-5.0); Total Bilirubin 0.3 mg/dL (0.2-1.0)
[2019-08-07 15:55] LABS: Albumin/Globulin Ratio 1.2 (1-3); EGFR African American 76.4 (>60); EGFR Non-African American 63.1 (>60); Globulin 3.4 g/dL (2-4); Total Protein 7.4 g/dL (6.4-8.9)
--- NOTE | 2019-08-07 16:44 | ED ---
HPI Chest Pain - HPI Summary HPI Summary: The patient is a 54 y/o F presenting to [facility] accompanied by with exertional SOB and intermittent left anterior CP onset over the last week. She reports that she has been experiencing SOB worst with exertion intermittently in the past week, as well as an episode of burning left anterior CP after exertion while sitting down this morning. She endorses nausea and a headache. Symptoms rated 0/10 in severity. She notes that she recently had a mammogram which may have caused the CP. She is scheduled for an echocardiogram with Dr. Fan tomorrow for abnormal EKGs. Her last stress test was years ago but had been normal. She had had a cardiac cath in February 2019 that was also normal with 0% stenosis in all vessels. She states that she is under a lot of stress due to a passing in the family yesterday. PMHx: HTN, angina, sleep apnea, chronic renal failure, fibromyalgia, arthritis, anxiety, gastric sleeve 2011. FHx: cardiac disease in mother and father. Former smoker, no EtOH, marijuana use. Medications reviewed. Allergies noted. - History of Current Complaint Chief Complaint: EDGeneral Time Seen by Provider: 08/07/19 16:20 Hx Obtained From: Patient Onset/Duration: Started Hours Ago, Still Present Timing: Lasting Minutes Initial Severity: Moderate Current Severity: None Pain Intensity: 0 Pain Scale Used: 0-10 Numeric Chest Pain Location: Left Anterior Chest Pain Radiates: No Character: Burning Aggravating Factor(s): Position - sitting Alleviating Factor(s): Other: - exertion Associated Signs and Symptoms: Positive: Chest Pain, Recent Stress, Headaches, Shortness of Breath, Nausea - Allergy/Home Medications Allergies/Adverse Reactions: Allergies Allergy/AdvReac Type Severity Reaction Status Date / Time No Known Allergies Allergy Verified 10/28/18 15:31 Home Medications: Home Medications ALPRAZolam TAB* [Xanax TAB*] 1 mg PO Q6HR PRN 08/07/19 [History Confirmed ] ARIPiprazole TAB* [Abilify 2 MG TAB*] 2 mg PO DAILY 08/07/19 [History Confirmed 08/07/19] Albuterol inh POWDER (NF) [Proair Respiclick] 2 puff INH Q4HR PRN 08/07/19 [ History Confirmed 08/07/19] Atenolol/Chlorthalidone [Atenolol/Chlorthalidone 50-25 mg-] 1 tab PO QAM [History Confirmed 08/07/19] Doxazosin TAB* [Cardura TAB*] 8 mg PO BEDTIME 08/07/19 [History Confirmed ] Ergocalciferol CAP* [Drisdol CAP*] 50,000 unit PO WEEKLY 08/07/19 [History Confirmed 08/07/19] Escitalopram * [Lexapro *] 20 mg PO DAILY 08/07/19 [History Confirmed 08/07/19] Losartan TAB* [Cozaar TAB*] 100 mg PO DAILY 08/07/19 [History Confirmed 08/07/19 ] oxyCODONE/Acetamin 5/325 MG* [Percocet 5/325 TAB*] 0.5 - 1 tab PO QID PRN [History Confirmed 08/07/19] PMH/Surg Hx/FS Hx/Imm Hx Endocrine/Hematology History: Denies: Hx Diabetes, Hx Thyroid Disease Cardiovascular History: Reports: Hx Angina - chest discomfort, Hx Hypertension Denies: Hx Coronary Artery Disease, Hx Hypercholesterolemia, Hx Myocardial Infarction, Hx Pacemaker/ICD, Hx Valvular Heart Disease Respiratory History: Reports: Hx Sleep Apnea Denies: Hx Asthma, Hx Chronic Obstructive Pulmonary Disease (COPD) GI History: Denies: Hx Ulcer History: Reports: Hx Chronic Renal Failure Sensory History: Reports: Hx Contacts or Glasses Denies: Hx Hearing Aid Opthamlomology History: Reports: Hx Contacts or Glasses Neurological History: Reports: Hx Nerve Disease - fibromyalgia Psychiatric History: Reports: Hx Anxiety - Cancer History Hx Chemotherapy: No Hx Radiation Therapy: No - Surgical History Surgical History: Yes Surgery Procedure, Year, and Place: Lap-band 2004. 2 C-sections. Gastric Sleeve 11/03/2011. hysterectomy. excisional biopsy right breast-negative Infectious Disease History: No Infectious Disease History: Reports: Hx Shingles Denies: Hx Clostridium Difficile, Hx Hepatitis, Hx Human Immunodeficiency Virus (HIV), Hx of Known/Suspected MRSA, Hx Tuberculosis, Hx Known/Suspected VRE , Hx Known/Suspected VRSA, History Other Infectious Disease, Traveled Outside the [place] in Last 30 Days - Family History Known Family History: Positive: Cardiac Disease - both parents, grandparents - Social History Alcohol Use: None Hx Substance Use: Yes Substance Use Type: Reports: Marijuana, Prescribed Substance Use Comment - Amount & Last Used: daily Hx Tobacco Use: Yes Smoking Status (MU): Former Smoker Type: eCigarettes Review of Systems Positive: Chest Pain - burning sensation left anterior chest Positive: Shortness Of Breath - exertional Positive: Nausea Positive: Headache All Other Systems Reviewed And Are Negative: Yes Physical Exam - Summary Physical Exam Summary: Constitutional: Well-developed, Obese, Alert. (-) Distressed Skin: Warm, Dry HENT: Normocephalic; Atraumatic Eyes: Conjunctiva normal Neck: Musculoskeletal ROM normal neck. (-) JVD, (-) Stridor, (-) Nuchal rigidity Cardio: Rhythm regular, rate normal, Heart sounds normal; Intact distal pulses; Radial pulses are 2+ and symmetric. (-) Murmur Pulmonary/Chest wall: Effort normal. (-) Respiratory distress, (-) Wheezes, (-) Rales Abd: Soft, (-) tenderness, (-) Distension, (-) Guarding, (-) Rebound Musculoskeletal: (-) Edema Lymph: (-) Cervical adenopathy Neuro: Alert, Oriented x3 Psych: Mood and affect Normal Triage Information Reviewed: Yes Vital Signs On Initial Exam: Initial Vitals Temp Pulse Resp BP Pulse Ox 98.2 F 58 12 132/69 95 08/07/19 14:52 08/07/19 14:52 08/07/19 14:52 08/07/19 14:52 08/07/19 14:52 Vital Signs Reviewed: Yes Procedures - Sedation Patient Received Moderate/Deep Sedation with Procedure: No Diagnostics - Vital Signs Vital Signs Temp Pulse Resp BP Pulse Ox 08/07/19 14:52 98.2 F 58 12 132/69 95 - Laboratory Lab Results: Lab Results 08/07/19 08/07/19 08/07/19 Range/Units 15:25 15:25 15:25 WBC 8.3 (3.5-10.8) 10^3/uL RBC 4.81 (3.70-4.87) 10^6 /uL Hgb 14.6 (12.0-16.0) g/dL Hct 43 (35-47) % MCV 90 (80-97) fL MCH 30 (27-31) pg MCHC 34 (31-36) g/dL RDW 14 (10-15) % Plt Count 208 (150-450) 10^3/uL MPV 7.0 L (7.4-10.4) fL Neut % (Auto) 66.9 % Lymph % (Auto) 24.8 % [place] % (Auto) 5.8 % Eos % (Auto) 1.8 % Baso % (Auto) 0.7 % Absolute Neuts (auto) 5.5 (1.5-7.7) 10^3/ul Absolute Lymphs (auto) 2.0 (1.0-4.8) 10^3/ul Absolute Monos (auto) 0.5 (0-0.8) 10^3/ul Absolute Eos (auto) 0.1 (0-0.6) 10^3/ul Absolute Basos (auto) 0.1 (0-0.2) 10^3/ul Absolute Nucleated RBC 0.0 10^3/ul Nucleated RBC % 0.2 Sodium 139 (135-145) mmol/L Potassium 3.4 L (3.5-5.0) mmol/L Chloride 99 L (101-111) mmol/L Carbon Dioxide 34 H (22-32) mmol/L Anion Gap 6 (2-11) mmol/L BUN 12 (6-24) mg/dL Creatinine 0.92 (0.51-0.95) mg/dL Est GFR ( Amer) 76.4 (>60) Est GFR (Non-Af Amer) 63.1 (>60) BUN/Creatinine Ratio 13.0 (8-20) Glucose 135 H (70-100) mg/dL Lactic Acid 1.2 (0.5-2.0) mmol/L Calcium 9.6 (8.6-10.3) mg/dL Total Bilirubin 0.30 (0.2-1.0) mg/dL AST 18 (13-39) U/L ALT 24 (7-52) U/L Alkaline Phosphatase 89 (34-104) U/L Troponin I 0.00 (<0.03) ng/mL Total Protein 7.4 (6.4-8.9) g/dL Albumin 4.0 (3.2-5.2) g/dL Globulin 3.4 (2-4) g/dL Albumin/Globulin Ratio 1.2 (1-3) Result Diagrams: 08/07/19 15:25 08/07/19 15:25 Lab Statement: Any lab studies that have been ordered have been reviewed, and results considered in the medical decision making process. - Radiology CXR Radiology Interpretation Completed By: Radiologist Summary of Radiographic Findings: Impression: 1. Small pleural effusions in the posterior costophrenic angles. 2. No focal airspace opacification. ED physician has reviewed this report. - EKG 1455 Cardiac Rate: NL - 62 BPM EKG Rhythm: Sinus Rhythm EKG Comparison: No Significant Change - compared to 2017 Summary of EKG Findings: An EKG [id number] reveals normal sinus rhythm at 62 BPM, nml axis, nml intervals. No STEMI. No acute changes. Compared to 2017, no changes. ED physician has reviewed and interpreted this EKG. Re-Evaluation - Re-Evaluation First Eval Re-Evaluation Time: 18:55 Comment: Discussed results and d/c plan with outpatient f/u and scheduled echo tomorrow. Will obtain ambualtory O2 sat prior to d/c. Second Eval Re-Evaluation Time: 19:00 Comment: Patient sustained 92% O2 on RA with ambulation, she is safe for d/c Chest Pain Course/Dx - Course Course Of Treatment: 54 y/o F w hx HTN p/w CP. Chest Pain DDX: The patient is well appearing, with stable vitals. Given the patient's clinical presentation, highest on differential is atypical CP. CXR w pleural effusions, no hx CHF. Getting echo outpatient w cardiology tomorrow. Although less likely, differential also includes the following: --Pneumothorax: Equal breath sounds, story inconsistent since gradual onset of symptoms. CXR shows no evidence of pneumothorax. Unlikely. --Cardiac tamponade: The history and physical are not concerning for tamponade. No Pulsus Paradoxus, no tachypnea. Unlikely. -- Mediastinitis or esophageal rupture: The history is not consistent, as the patient has had no recent history of significant wretching, instrumentation, or mediastinal surgeries. Unlikely. --Aortic dissection: The patient does not describe the classical tearing chest pain radiating into the back, and the CXR does not show mediastinal widening or other signs of aortic dissection. Unlikely. --ACS: The initial EKG shows no ischemic changes. The initial troponin is not elevated. Heart score - HEART Score. Based on a HEART score of 3 the patient has a low risk (<2% chance) of major adverse cardiac event within the next 6 weeks. I explained to the patient that based on the work-up today, her risk of heart attack is low and that he/she will be discharged with outpatient follow-up. Strict return precautions were discussed regarding worsening chest pain, new / atypical pain, shortness of breath, or any other serious concerns. Patient endorsed understanding and has no questions at this time. - Diagnoses Provider Diagnoses: Chest pain, Pleural effusion - Provider Notifications Discussed Care Of Patient With: Jose Cruz Fan - cardiology Time Discussed With Above Provider: 18:45 Instructed by Provider To: Other - I discussed the patient's case with Dr. Fan , and he agrees with outpatient f/u tomorrow. Discharge ED - Sign-Out/Discharge Documenting (check all that apply): Patient Departure - Patient will be discharged home. - Discharge Plan Condition: Stable Disposition: HOME Patient Education Materials: Chest Pain (DC), Pleural Effusion (ED) Referrals: Nathaniel Thornton MD [Primary Care Provider] - 3 Days Additional Instructions: You were seen in the emergency department for chest pain. Your chest Xray showed small pleural effusions (small areas of fluid) at the base of your lungs. Follow up with your doctor to get an echocardiogram. Please follow up with your primary care doctor in the next 2-3 days and return to the emergency department for trouble breathing, chest pain, worsening or concerning symptoms. It was a pleasure taking care of you today. - Billing Disposition and Condition Condition: STABLE Disposition: Home - Attestation Statements Document Initiated by Cheryl: Yes Documenting Scribe: Prudence Lockwood Provider For Whom Cheryl is Documenting (Include Credential): Dr. Camille Jimenez MD Scribe Attestation: I, jaki Hightoweribed for Dr. Camille Jimenez MD on 08/07/19 at 2134. Scribe Documentation Reviewed: Yes Provider Attestation: The documentation as recorded by the Prudence moreno accurately reflects the service I personally performed and the decisions made by me, Dr. Camille Jimenez MD Status of Scribe Document: Viewed
[2019-08-07 18:54] VITALS: BP 124/70
== END 2019-08-07 18:59 | disposition home or self-care (01) ==
LOC: ED 14:48
DX: J90 Pleural effusion, not elsewhere classified (principal); R07.9 Chest pain, unspecified; R06.02 Shortness of breath; R11.0 Nausea; R51 Headache; I12.9 Hypertensive chronic kidney disease with stage 1 through stage 4 chronic kidney disease, or unspecified chronic kidney disease; N18.9 Chronic kidney disease, unspecified; G47.30 Sleep apnea, unspecified; M79.7 Fibromyalgia; Z98.84 Bariatric surgery status; Z87.891 Personal history of nicotine dependence; Z79.899 Other long term (current) drug therapy
CPT/HCPCS: 36415; 71046; 80053; 83605; 84484; 85025; 93005; 99282

== ENCOUNTER 2022-02-24 06:43 | Observation (INO) ==
[~2022-02-24 06:43] MED LIST changes: +Buffered Lidocaine 1% SYRIN 1 ml INTRADERM ONE; -Diazepam TAB(*) 5 MG ONE; -Heparin 2 UNITS/ML IVPREMIX* 2,000 ML IV ONE; -Heparin(*) 1000 UNIT/ML 10 ML VIAL CATH LAB IV ONE; -Iohexol 350 (CONTRAST) 200 ML MDV IV ONE; +Lactated Ringers 1000 ml BAG 1,000 ML IV SCH; -Lidocaine 1% INJ* 10 MG/ML 30 ML SDV ONE; -Midazolam* 1 MG/ML 5 ML VIAL (5 MG) ONE; -VERAPAMIL 2.5 MG/ML 2 ML VIAL ** 5 mg/2 ml ONE; -diPHENhydraMINE PO* 25 MG ONE; -fentaNYL* 50 MCG/ML 2 ML VIAL (100 MCG VIAL) ONE; -nitroGLYCERIN DRIP* 25,000 MCG/250 ML BTL ONE
[2022-02-24] MEDS ORDERED: Ondansetron 4 mg VIAL 2 MG/ML 2 ml VIAL ONE (07:00)
[2022-02-24] MEDS ORDERED: Propofol 10 MG/ML 20 ML BTL ONE ×4 (07:00→11:59)
[2022-02-24] MEDS ORDERED: Dexamethasone IV 4 MG/ML VIAL 1 ml VIAL ONE (07:00)
[2022-02-24] MEDS ORDERED: Lidocaine 2% PF 5 ML VIAL ONE (07:00)
[2022-02-24] MEDS ORDERED: fentaNYL 100 mcg/2 ml 50 MCG/ML VIAL ONE (07:00)
[2022-02-24] MEDS ORDERED: Phenylephrine IV 10 MG/ML 1 ml VIAL ONE (07:00)
[2022-02-24] MEDS ORDERED: Midazolam 2 mg/2 ml VIAL 1 mg/ml 2 ml VIAL (2 mg) ONE ×2 (07:00→07:05)
[2022-02-24] MEDS ORDERED: ceFAZolin 2 GM in NS PREMIX 2 GM/100 ML BAG IVPB ONE (07:16)
[2022-02-24] MEDS ORDERED: ROPIVACAINE 5 MG/ML 30 ML BTL (0.5%) ONE ×2 (07:23→07:57)
[2022-02-24] MEDS ORDERED: Lidocaine 1% MPF 5 ML VIAL ONE (07:57)
[2022-02-24] MEDS ORDERED: Bupivacaine 0.5% PF 10 ML SDV VIAL INJ ONE (08:40)
[2022-02-24] MEDS ORDERED: Sterile Water for Inj 10 ML ONE (10:01)
[2022-02-24] MEDS ORDERED: ceFAZolin VIAL VIAL ONE (10:32)
[2022-02-24] MEDS ORDERED: Acetaminophen IV 1 GM/100ML 1,000 MG/100 ML BAG IV ONE (10:33)
[2022-02-24] MEDS ORDERED: Ondansetron 4 mg VIAL 2 MG/ML 2 ml VIAL IV PRN (10:48)
[2022-02-24] MEDS ORDERED: Magnesium Hydroxide LIQ 30 ML UDC PO PRN (10:48)
[2022-02-24] MEDS ORDERED: Lactulose 30 ml UDC PO PRN (10:48)
[2022-02-24] MEDS ORDERED: Ondansetron ODT 4 mg TAB 4 MG TAB PO PRN (10:48)
[2022-02-24] MEDS ORDERED: Morphine 2 MG/ML SYRINGE IV PRN (10:48)
[2022-02-24] MEDS ORDERED: Ketamine HCL 50 mg/ml 10 ml VIAL (500 MG) ONE (11:01)
[2022-02-24] MEDS ORDERED: HYDROmorphone 1 MG/1 ML SYRINGE IV PRN (11:11)
[2022-02-24] MEDS ORDERED: Naloxone 0.4 mg VIAL 0.4 mg/ml 1 ml VIAL IV PRN (11:11)
[2022-02-24] MEDS ORDERED: HYDROmorphone 1 MG/1 ML SYRINGE ONE (13:14)
[2022-02-24] MEDS: Lactated Ringers 1000 ml BAG 1,000 ML IV SCH (14:20)
[2022-02-24] MEDS ORDERED: Naloxone 0.4 mg VIAL 0.4 mg/ml 1 ml VIAL IV PUSH PRN (18:08)
[2022-02-24] MEDS: ceFAZolin 1 GM ADVAN 1 GM in NS 0.9% 50 ML 50 ML IVPB SCH (18:28)
[2022-02-24] MEDS: Potassium Chlor 20 meq TAB.ER PO SCH (20:48)
[2022-02-24] MEDS: Magnesium Hydroxide LIQ 30 ML UDC PO SCH (20:55)
[2022-02-25] MEDS: Lactated Ringers 1000 ml BAG 1,000 ML IV SCH (00:12)
[2022-02-25] MEDS: ceFAZolin 1 GM ADVAN 1 GM in NS 0.9% 50 ML 50 ML IVPB SCH ×2 (03:11→09:43)
[2022-02-25 06:48] LABS: Hematocrit 42 % (35-47); Hemoglobin 14.1 g/dL (12.0-16.0); Mean Platelet Volume 7.8 fL (7.4-10.4); Platelet Count 180 10^3/uL (150-450)
[2022-02-25 07:12] LABS: Calcium 9.2 mg/dL (8.6-10.3); Potassium 3.9 mmol/L (3.5-5.0); eGFR CKD-EPI 80.5 (>60)
[2022-02-25] MEDS ORDERED: ATENOLOL CHLORTHALIDONE PO SCH (09:00)
[2022-02-25] MEDS ORDERED: Vitamin THERAPEUTIC TAB PO SCH (09:00)
[2022-02-25] MEDS: Magnesium Hydroxide LIQ 30 ML UDC PO SCH (09:19)
[2022-02-25] MEDS: Potassium Chlor 20 meq TAB.ER PO SCH (09:27)
[2022-02-25 11:51] VITALS: BP 95/62
== END 2022-02-25 13:05 | disposition home or self-care (01) ==
LOC: SSU 06:43 → OR 06:43 → EDSTATUS 09:15
PROVIDERS: ADMIT Orthopaedic Surgery Adult Reconstructive Orthopaedic Surgery; ATTEND Orthopaedic Surgery Adult Reconstructive Orthopaedic Surgery

== ENCOUNTER 2022-06-09 10:52 | Observation (INO) ==
[~2022-06-09 10:52] MED LIST changes: +HYDROmorphone 1 MG/1 ML SYRINGE IV PRN; +Naloxone 0.4 mg VIAL 0.4 mg/ml 1 ml VIAL IV PRN; +fentaNYL 100 mcg/2 ml 50 MCG/ML VIAL IV PRN
[2022-06-09] MEDS ORDERED: Dexamethasone IV 4 MG/ML VIAL 1 ml VIAL ONE ×2 (11:45→13:50)
[2022-06-09] MEDS ORDERED: Bupivacaine 0.5% SDV PF 30ML VIAL ONE (11:45)
[2022-06-09] MEDS ORDERED: Lidocaine 2% PF 5 ML VIAL ONE ×3 (11:45→11:53)
[2022-06-09] MEDS ORDERED: Midazolam 5 mg/5 ml VIAL 1 mg/ml 5 ml VIAL (5 mg) ONE (11:46)
[2022-06-09] MEDS ORDERED: Phenylephrine IV 10 MG/ML 1 ml VIAL ONE (11:53)
[2022-06-09] MEDS ORDERED: ceFAZolin 2 GM PREMIX 0 GM/0 ML BAG ONE (11:53)
[2022-06-09] MEDS ORDERED: ceFAZolin *3* GM in NS PREMIX 3 GM/100 ML BAG IV ONE (11:58)
[2022-06-09] MEDS ORDERED: Ropivacaine 5 MG/ML 20 ML VIAL 0.5% (100 MG) ONE (12:05)
[2022-06-09] MEDS ORDERED: fentaNYL 100 mcg/2 ml 50 MCG/ML VIAL ONE (12:39)
[2022-06-09] MEDS ORDERED: Propofol 10 mg/ml 100 ML BTL 200 ML ONE (12:44)
[2022-06-09] MEDS ORDERED: Ondansetron 4 mg VIAL 2 MG/ML 2 ml VIAL ONE (13:50)
[2022-06-09] MEDS ORDERED: Magnesium Hydroxide LIQ 30 ML UDC PO PRN (14:33)
[2022-06-09] MEDS ORDERED: Lactulose 30 ml UDC PO PRN (14:33)
[2022-06-09] MEDS ORDERED: Lactated Ringers 1000 ml BAG 1,000 ML IV SCH (15:00)
[2022-06-09] MEDS ORDERED: Albuterol HFA INHALER 8 gm MDI INH PRN (19:45)
[2022-06-09] MEDS: Magnesium Hydroxide LIQ 30 ML UDC PO SCH (20:02)
[2022-06-09] MEDS: Morphine 2 MG/ML SYRINGE IV PRN (20:03)
[2022-06-10] MEDS: ceFAZolin 1 GM ADVAN 1 GM in NS 0.9% 50 ML 50 ML IVPB SCH ×3 (00:18→13:08)
[2022-06-10] MEDS: Morphine 2 MG/ML SYRINGE IV PRN (03:18)
[2022-06-10 06:39] LABS: Hematocrit 37 % (35-47); Hemoglobin 12.7 g/dL (12.0-16.0); Mean Platelet Volume 7.7 fL (7.4-10.4); Platelet Count 188 10^3/uL (150-450)
[2022-06-10 07:12] LABS: Calcium 8.8 mg/dL (8.6-10.3); Creatinine, Serum 0.97 mg/dL (0.51-0.95); Potassium 3.8 mmol/L (3.5-5.0); eGFR CKD-EPI 67.3 (>60)
[2022-06-10] MEDS ORDERED: ATENOLOL CHLORTHALIDONE PO SCH (09:00)
[2022-06-10] MEDS ORDERED: Vitamin THERAPEUTIC TAB PO SCH (09:00)
[2022-06-10] MEDS: Magnesium Hydroxide LIQ 30 ML UDC PO SCH (10:04)
[2022-06-10 12:15] VITALS: BP 104/66
== END 2022-06-10 15:05 | disposition home or self-care (01) ==
LOC: SSU 10:52 → OR 10:52
PROVIDERS: ADMIT Orthopaedic Surgery Adult Reconstructive Orthopaedic Surgery; ATTEND Orthopaedic Surgery Adult Reconstructive Orthopaedic Surgery